=== PATIENT | male | born 2000 | race Caucasian/White ===

== ENCOUNTER 2024-01-22 21:42 | Inpatient (IN) | payer OTHER, SELFPAY ==
[~2024-01-22] VITALS: Ht 177.8 cm; Wt 91.0 kg
[2024-01-22 22:42] LABS: HEMATOCRIT 42.3 % (42.0-52.0); HEMOGLOBIN 14.8 g/dl (13.5-17.5); MEAN CORPUSCULAR VOLUME 82.8 fl (80.0-96.0); PLATELET COUNT, AUTOMATED 260 10^3/uL (150-450); RED BLOOD COUNT 5.11 10^6/uL (4.30-6.10); WHITE BLOOD COUNT 5.7 10^3/uL (4.0-10.0)
[2024-01-22] MEDS: LORazepam 2 MG TAB PO STA (22:57)
[2024-01-22 22:58] LABS: AMPHETAMINES LEVEL URINE NEGATIVE (NEGATIVE)
[2024-01-22 22:59] LABS: BARBITURATES URINE NEGATIVE (NEGATIVE); BENZODIAZEPINES URINE NEGATIVE (NEGATIVE); CANNABINOIDS URINE NEGATIVE (NEGATIVE); COCAINE METABOLITE URINE NEGATIVE (NEGATIVE); METHADONE URINE NEGATIVE (NEGATIVE); OPIATES URINE NEGATIVE (NEGATIVE); PHENCYCLIDINE URINE NEGATIVE (NEGATIVE)
[2024-01-22 23:01] LABS: ETHYL ALCOHOL (ETHANOL) < 0.003 % (0.000-0.010)
[2024-01-22 23:02] LABS: SALICYLATE LEVEL < 3.0 MG/DL (<30)
[2024-01-22 23:03] LABS: ALBUMIN 3.9 G/DL (3.2-5.2); ALKALINE PHOSPHATASE 85 U/L (40-129); ALT/SGPT 23 U/L (7.0-40); AST/SGOT 20 U/L (<34); BILIRUBIN,DIRECT < 0.1 MG/DL (<0.4); BILIRUBIN,TOTAL 0.3 MG/DL (0.3-1.2); BLOOD UREA NITROGEN 14 MG/DL (9-23); CALCIUM LEVEL 9.8 MG/DL (8.5-10.1); CARBON DIOXIDE LEVEL 27 MMOL/L (20-31); CHLORIDE LEVEL 106 MMOL/L (98-107); CREATININE FOR GFR 0.83 MG/DL (0.70-1.30); GLOMERULAR FILTRATION RATE > 60.0 (>60); GLUCOSE, FASTING 102 MG/DL (60-100); SODIUM LEVEL 142 MMOL/L (136-145); TOTAL PROTEIN 7.8 G/DL (5.7-8.2)
[2024-01-22 23:05] LABS: THYROID STIMULATING HORMONE 0.944 uIU/ML (0.55-4.78)
[2024-01-23] MEDS ORDERED: MAALOX 30 ML SUSP *UDC PO PRN (01:50)
[2024-01-23] MEDS: traZODone 50 MG TAB PO PRN (03:09)
[2024-01-23] MEDS: diphenhydrAMINE 25MG CAP PO PRN (03:09)
[2024-01-23 03:13] VITALS: BP 150/78; TEMP 97.8; O2SAT 98
[2024-01-23 06:19] VITALS: BP 151/88; TEMP 97; O2SAT 100
[2024-01-23] MEDS: OLANZapine ORAL DISINTEGRATING TAB 5MG PO SCH (13:05)
[2024-01-23 15:47] VITALS: BP 148/92; TEMP 97.6; O2SAT 99
[2024-01-23] MEDS: OLANZapine ORAL DISINTEGRATING TAB 5MG PO PRN (16:53)
[2024-01-23] MEDS ORDERED: LATU1TAB PO (16:56)
[2024-01-23] MEDS ORDERED: PRAZ1CAP PO (16:56)
[2024-01-23] MEDS ORDERED: TRAZ150T90 PO (16:56)
[2024-01-23] MEDS ORDERED: VYVA70CA3 PO (16:56)
[2024-01-23] MEDS ORDERED: HYDR-643 PO (16:56)
[2024-01-23] MEDS ORDERED: HOME MED LIST COMPLETE! XX SCH (17:00)
[2024-01-23] MEDS: LURASIDONE HCL 40MG TAB (LATUDA) PO SCH (17:55)
[2024-01-23] MEDS: LURASIDONE 20 MG TAB (LATUDA) PO SCH (17:55)
[2024-01-23] MEDS: PRAZOSIN 1 MG CAP PO SCH (21:17)
[2024-01-23] MEDS: traZODone 100 MG TAB PO PRN (21:17)
[2024-01-24 06:51] VITALS: BP 123/76; TEMP 97.8; O2SAT 99
[2024-01-24] MEDS: MOM 30ML SUSPENSION UDC PO PRN (16:34)
[2024-01-24 16:37] VITALS: BP 138/68; TEMP 97.9; O2SAT 96
[2024-01-25 06:48] VITALS: BP 146/73; TEMP 97.8; O2SAT 98
[2024-01-25] MEDS: ACETAMINOPHEN 325 MG TAB PO PRN (10:33)
[2024-01-25 17:06] VITALS: BP 137/81; TEMP 96.7; O2SAT 98
[2024-01-26 06:40] VITALS: BP 160/78; TEMP 97.3; O2SAT 99
[2024-01-26 06:47] VITALS: BP 146/78
[2024-01-26] MEDS: IBUPROFEN 400MG TAB PO PRN (08:12)
[2024-01-26] MEDS ORDERED: OLANZapine ORAL DISINTEGRATING TAB 5MG PO SCH ×2 (08:30→09:00)
[2024-01-26] MEDS: OLANZapine 5 MG TAB PO ONE (09:34)
[2024-01-26] MEDS: DIVALPROEX 250MG *ER* TAB PO SCH (10:31)
[2024-01-26 15:05] VITALS: BP 139/73; TEMP 98.5; O2SAT 98
[2024-01-26] MEDS: OLANZapine 10 MG TAB PO SCH (20:08)
[2024-01-26] MEDS: NICOTINE 21MG/24HR 1 EA TRANSDERMAL TD PRN (20:51)
[2024-01-26] MEDS ORDERED: OLANZapine 10 MG TAB PO SCH (21:00)
[2024-01-27 06:40] VITALS: BP 138/75; TEMP 97.6; O2SAT 98
[2024-01-27] MEDS ORDERED: OLANZapine ORAL DISINTEGRATING TAB 5MG PO SCH (09:00)
[2024-01-27 15:48] VITALS: TEMP 98; O2SAT 98
[2024-01-27 21:51] VITALS: BP 137/90
[2024-01-28 06:45] VITALS: BP 147/67; TEMP 97.8; O2SAT 100
[2024-01-28] MEDS ORDERED: OLAN1TAB20 PO (09:30)
[2024-01-28] MEDS ORDERED: DEPA250T2 PO (09:30)
[2024-01-28] MEDS ORDERED: TRAZ-257 PO (09:30)
[2024-01-28] MEDS ORDERED: PRAZ1CAP PO (09:30)
== END 2024-01-28 12:38 | disposition home or self-care (01) | DRG 751 ==
LOC: M ED 21:42 → M ED INP 01-23 01:47 → M PSY 01-23 03:01
PROVIDERS: ADMIT Psychiatry & Neurology Neurology; ATTEND Psychiatry & Neurology Psychiatry
DX: F29 Unspecified psychosis not due to a substance or known physiological condition (principal); F60.3 Borderline personality disorder; Z91.51 Personal history of suicidal behavior; Z91.52 Personal history of nonsuicidal self-harm; R45.851 Suicidal ideations; Z81.8 Family history of other mental and behavioral disorders; Z56.0 Unemployment, unspecified; Z62.810 Personal history of physical and sexual abuse in childhood; Z79.899 Other long term (current) drug therapy; F43.10 Post-traumatic stress disorder, unspecified; F90.9 Attention-deficit hyperactivity disorder, unspecified type; F42.9 Obsessive-compulsive disorder, unspecified